=== PATIENT | female | born 1990 | race Caucasian/White ===

== ENCOUNTER 2016-04-19 13:34 | Emergency (ER) | payer OTHER ==
[2016-04-19 14:55] LABS: Urine Bilirubin Negative (Negative); Urine Glucose Negative (Negative); Urine Nitrite Negative (Negative)
--- NOTE | 2016-04-19 17:12 | RAD ---
INDICATION: 7 months . Evaluate for obstruction. COMPARISON: CT abdomen pelvis November 19, 2013 TECHNIQUE: Longitudinal and transverse scans of the kidneys and bladder were obtained. FINDINGS: Kidneys: The kidneys are normal in size and echogenicity. No renal masses, calculi, or hydronephrosis is seen. The right kidney measures 9.2 x 3.2 x 4.9 cm and the left kidney 9.7 x 3.6 x 4.4 cm. Bladder: The bladder is partially distended. There are no intrinsic or extrinsic masses. The prevoid volume is 353 ml and the postvoid volume is 4 ml. Ureteral jets are not documented but this is likely related to technical factors. The patient was imaged in the decubitus position. Other: None IMPRESSION: NO SCINTIGRAPHIC ADVISED. NO EVIDENCE OF HYDRONEPHROSIS.
--- NOTE | 2016-04-19 18:47 | ED ---
Arsenio Gaines Billy, scribed for Abigail Thomas MD on 04/19/16 at 1427 . GI/ HPI - HPI Summary HPI Summary: Patient is a 25 year-old female coming to [facility] presenting with urinary retention and lower back pain since yesterday. Pain severity 4/10. Patient has difficulty starting a stream of urine. She is 7 months (/A0). She denies any similar episodes in the past. She has increased her fluid intake with no improvement. She sees [facility] DOCTOR'S ASSISTANT in [place]. - History of Current Complaint Chief Complaint: EDUrogenitalProblems Time Seen by Provider: 04/19/16 13:58 Stated Complaint: UNABLE URINATE/LOWER BACK PAIN/ 7 MO Hx Obtained From: Patient Onset/Duration: Started Hours Ago - since yesterday Timing: Constant Severity: Moderate Current Severity: Moderate Pain Intensity: 4 - lower back Associated Signs and Symptoms: Positive: Other: - urinary retention Aggravating Factor(s): Nothing Alleviating Factor(s): Nothing - Allergy/Home Medications Allergies/Adverse Reactions: Allergies Allergy/AdvReac Type Severity Reaction Status Date / Time Cefaclor [From Ceclor] Allergy Intermediate Shortness Verified 10/25/15 00:05 of Breath Erythromycin Allergy Intermediate Rash And Verified 10/25/15 00:05 Itching Latex Allergy Intermediate Rash And Verified 10/25/15 00:05 Itching Penicillins AdvReac Intermediate GI Upset Verified 10/25/15 00:05 Sulfa Drugs AdvReac Intermediate GI Upset Verified 10/25/15 00:05 Amoxicillin AdvReac Mild GI Upset Verified 10/25/15 00:05 PMH/Surg Hx/FS Hx/Imm Hx Endocrine/Hematology History: Denies: Hx Diabetes, Hx Thyroid Disease, Hx Anemia, Hx Unexplained Bleeding Cardiovascular History: Reports: 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6, Hx Valvular Heart Disease - see above Denies: Hx Aneurysm, Hx Angina, Hx Angioplasty, Hx Auto Implanted Cardiovert Defib, Hx Cardiac Arrest, Hx Cardiomegaly, Hx Congestive Heart Failure, Hx Coronary Artery Disease, Hx Deep Vein Thrombosis, Hx Embolism, Hx Hypercholesterolemia, Hx Hypotension, Hx Hypertension, Hx Pacemaker/ICD, Hx Peripheral Vascular Disease, Hx Rheumatic Fever, Hx Syncope, Other Cardiovascular Problems/Disorders Respiratory History: Reports: Hx Asthma Denies: Hx Chronic Obstructive Pulmonary Disease (COPD) GI History: Denies: Hx Ulcer History: Reports: Hx Kidney Stones, Other Problems/Disorders - current uti Sensory History: Denies: Hx Contacts or Glasses Opthamlomology History: Denies: Hx Contacts or Glasses Psychiatric History: Reports: Hx Depression - per moms report. - Surgical History Surgery Procedure, Year, and Place: age 6 cardiac surgery HOLE IN HEART, choley 2013 Infectious Disease History: No Infectious Disease History: Denies: Hx Clostridium Difficile, Hx Hepatitis, Hx Human Immunodeficiency Virus (HIV), Hx of Known/Suspected MRSA, Hx Shingles, Hx Tuberculosis, Hx Known/ Suspected VRE, Hx Known/Suspected VRSA, History Other Infectious Disease, Traveled Outside the [place] in Last 30 Days - Family History Known Family History: Positive: Cardiac Disease - Social History Lives: Alone Alcohol Use: Occasionally Substance Use Type: Reports: None Hx Tobacco Use: Yes Smoking Status (MU): Former Smoker Type: Cigarettes Amount Used/How Often: 2 cig/day Length of Time of Smoking/Using Tobacco: 1+ year Review of Systems Negative: Fever Genitourinary: Other - 7mo Positive: other - retention Positive: Other - lower back pain All Other Systems Reviewed And Are Negative: Yes Physical Exam Triage Information Reviewed: Yes Vital Signs On Initial Exam: Initial Vitals Temp Pulse Resp BP Pulse Ox 97.4 F 67 20 108/58 98 04/19/16 13:42 04/19/16 13:42 04/19/16 13:42 04/19/16 13:42 04/19/16 13:42 Vital Signs Reviewed: Yes Appearance: Positive: Well-Appearing, No Pain Distress Skin: Positive: Warm, Skin Color Reflects Adequate Perfusion, Dry Head/Face: Positive: Normal Head/Face Inspection Eyes: Positive: EOMI, JOCY ENT: Positive: Normal ENT inspection Neck: Positive: Supple, Nontender Respiratory/Lung Sounds: Positive: Clear to Auscultation, Breath Sounds Present Cardiovascular: Positive: RRR Abdomen Description: Positive: Nontender, Soft, Other: - Gravid uterus. Negative: CVA Tenderness (R), CVA Tenderness (L), Distended, Guarding Musculoskeletal: Positive: Strength/ROM Intact Neurological: Positive: Sensory/Motor Intact, Alert, Oriented to Person Place, Time, CN Intact II-III Psychiatric: Positive: Affect/Mood Appropriate AVPU Assessment: Alert - Alessandra Coma Scale Coma Scale Total: 15 Diagnostics - Vital Signs Vital Signs Temp Pulse Resp BP Pulse Ox 04/19/16 13:42 97.4 F 67 20 108/58 98 - Laboratory Lab Results: Lab Results 04/19/16 Range/Units 14:40 Urine Color Yellow Urine Appearance Cloudy Urine pH 6.0 (5-9) Ur Specific [place] 1.019 (1.010-1.030) Urine Protein Negative (Negative) Urine Ketones Negative (Negative) Urine Blood Negative (Negative) Urine Nitrate Negative (Negative) Urine Bilirubin Negative (Negative) Urine Urobilinogen Negative (Negative) Ur Leukocyte Esterase Negative (Negative) Urine Glucose Negative (Negative) Urine Ascorbic Acid * H (Negative) Lab Statement: Any lab studies that have been ordered have been reviewed, and results considered in the medical decision making process. - Ultrasound No standard instances Ultrasound Interpretation Completed By: Radiologist - Abd/bladder ultrasound: NO SCINTIGRAPHIC ADVISED. NO EVIDENCE OF HYDRONEPHROSIS. Re-Evaluation - Re-Evaluation First Eval Re-Evaluation Time: 14:59 GIGU Course/Dx - Course Course Of Treatment: pt noticing she has to push hard to urinate and that does not feel normal to her she is 7 months urine neg here vss and u/s shows no residual after urination and no hydronephrosis. pt is very well appearing will f/u with her coal crusher operator and return for any new or worsened symptoms - Diagnoses Provider Diagnoses: Dysuria Discharge - Discharge Plan Condition: Stable Disposition: HOME Patient Education Materials: Dysuria (ED) Referrals: James Decker MD [Primary Care Provider] - The documentation as recorded by the Arsenio stevenson Billy accurately reflects the service I personally performed and the decisions made by me, Abigail Thomas MD.
[2016-04-19 19:13] VITALS: BP 134/78
== END 2016-04-19 19:12 | disposition home or self-care (01) ==
LOC: ED 13:34
DX: O26.893 Other specified pregnancy related conditions, third trimester (principal); M54.5 Low back pain; R30.0 Dysuria; R33.9 Retention of urine, unspecified; Z88.0 Allergy status to penicillin; Z87.891 Personal history of nicotine dependence; Z3A.26 26 weeks gestation of pregnancy
CPT/HCPCS: 76770; 81003; 99283

== ENCOUNTER 2017-08-05 13:15 | Emergency (ER) | payer OTHER ==
[2017-08-05 14:04] LABS: ABS Basophils 0.1 10^3/ul (0-0.2); ABS Eosinophils 0.3 10^3/ul (0-0.6); ABS Lymphocytes 1.2 10^3/ul (1.0-4.8); ABS Monocytes 0.9 10^3/ul (0-0.8); ABS Neutrophils 6.6 10^3/ul (1.5-7.7); ABS Nucleated RBC 0 10^3/ul; Eosinophil % 2.9 % (0-6); Hematocrit 29 % (35-47); Hemoglobin 9.5 g/dl (12.0-16.0); Lymphocyte % 13.6 % (25-47); Mean Corpuscular HGB Conc 33 g/dl (31-36); Mean Corpuscular Hemoglobin 29 pg (27-31); Mean Corpuscular Volume 87 fL (80-97); Mean Platelet Volume 9.8 um3 (7.4-10.4); Nucleated Red Blood Cells % 0; Platelet Count 199 10^3/ul (150-450); Red Blood Count 3.27 10^6/ul (4.0-5.4); Red Cell Distribution Width 15 % (10.5-15)
[2017-08-05 14:18] LABS: INR 0.98 (0.77-1.02)
[2017-08-05 14:25] LABS: EGFR Non-African American 97.9 (>60)
--- NOTE | 2017-08-05 15:20 | ED ---
Skin Complaint - HPI Summary HPI Summary: Pt here w/ bloody leakage from wound 5 days s/p - clear, bloody d/c. Sudden release then stopped. Denies fever, chills, N/V/D, pain other than soreness from . H&h are low from - pt is taking vitamins and follows w/ Dr. Levi in [place]. Eating and drinking w/o pain. Voided her bladder and moved her bowels today w/o pain or difficulty. No know h/o MRSA. - History of Current Complaint Chief Complaint: EDOBProblems Time Seen by Provider: 08/05/17 13:35 Stated Complaint: OB PROBLEM Hx Obtained From: Patient Hx Last Menstrual Period: 09/02/14 Pain Intensity: 0 - Allergy/Home Medications Allergies/Adverse Reactions: Allergies Allergy/AdvReac Type Severity Reaction Status Date / Time MS Cefaclor [From Ceclor] Allergy Intermediate Shortness Verified 10/25/15 00:05 of Breath MS Erythromycin Allergy Intermediate Rash And Verified 10/25/15 00:05 [Erythromycin] Itching MS Latex [Latex] Allergy Intermediate Rash And Verified 10/25/15 00:05 Itching MS Penicillins [Penicillins] AdvReac Intermediate GI Upset Verified 10/25/15 00: 05 MS Sulfa Drugs [Sulfa Drugs] AdvReac Intermediate GI Upset Verified 10/25/15 00: 05 MS Amoxicillin [Amoxicillin] AdvReac Mild GI Upset Verified 10/25/15 00:05 Home Medications: Home Medications oxyCODONE/Acetam5/325MG PREPAK [Percocet 5/325 TAB*] 1 tab PO Q4H PRN 08/05/17 [ History Confirmed 08/05/17] PMH/Surg Hx/FS Hx/Imm Hx Endocrine/Hematology History: Denies: Hx Diabetes, Hx Thyroid Disease, Hx Anemia, Hx Unexplained Bleeding Cardiovascular History: Reports: 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6, Hx Valvular Heart Disease - see above Denies: Hx Aneurysm, Hx Angina, Hx Angioplasty, Hx Auto Implanted Cardiovert Defib, Hx Cardiac Arrest, Hx Cardiomegaly, Hx Congestive Heart Failure, Hx Coronary Artery Disease, Hx Deep Vein Thrombosis, Hx Embolism, Hx Hypercholesterolemia, Hx Hypotension, Hx Hypertension, Hx Pacemaker/ICD, Hx Peripheral Vascular Disease, Hx Rheumatic Fever, Hx Syncope, Other Cardiovascular Problems/Disorders Respiratory History: Reports: Hx Asthma Denies: Hx Chronic Obstructive Pulmonary Disease (COPD) GI History: Denies: Hx Ulcer History: Reports: Hx Kidney Stones, Other Problems/Disorders - current uti Sensory History: Denies: Hx Contacts or Glasses Opthamlomology History: Denies: Hx Contacts or Glasses Psychiatric History: Reports: Hx Depression - per moms report. - Surgical History Surgery Procedure, Year, and Place: age 6 [facility] Infectious Disease History: No Infectious Disease History: Denies: Hx Clostridium Difficile, Hx Hepatitis, Hx Human Immunodeficiency Virus (HIV), Hx of Known/Suspected MRSA, Hx Shingles, Hx Tuberculosis, Hx Known/ Suspected VRE, Hx Known/Suspected VRSA, History Other Infectious Disease, Traveled Outside the US in Last 30 Days - Family History Known Family History: Positive: Cardiac Disease - Social History Alcohol Use: None Substance Use Type: Reports: None Hx Tobacco Use: Yes Smoking Status (MU): Former Smoker Type: Cigarettes Amount Used/How Often: 2 cig/day Length of Time of Smoking/Using Tobacco: 1+ year Physical Exam Vital Signs On Initial Exam: Initial Vitals Temp Pulse Resp BP Pulse Ox 97.8 F 67 16 122/45 97 08/05/17 13:18 08/05/17 13:18 08/05/17 13:18 08/05/17 13:18 08/05/17 13:18 Diagnostics - Vital Signs Vital Signs Temp Pulse Resp BP Pulse Ox 08/05/17 13:55 63 108/65 96 08/05/17 13:18 97.8 F 67 16 122/45 97 - Laboratory Lab Results: Lab Results 08/05/17 08/05/17 08/05/17 Range/Units 13:48 13:48 13:48 WBC 9.0 (3.5-10.8) 10^3/ul RBC 3.27 L (4.0-5.4) 10^6/ul Hgb 9.5 L (12.0-16.0) g/dl Hct 29 L (35-47) % MCV 87 (80-97) fL MCH 29 (27-31) pg MCHC 33 (31-36) g/dl RDW 15 (10.5-15) % Plt Count 199 (150-450) 10^3/ul MPV 9.8 (7.4-10.4) um3 Neut % (Auto) 72.6 (38-83) % Lymph % (Auto) 13.6 L (25-47) % [place] % (Auto) 10.0 H (0-7) % Eos % (Auto) 2.9 (0-6) % Baso % (Auto) 0.9 (0-2) % Absolute Neuts (auto) 6.6 (1.5-7.7) 10^3/ul Absolute Lymphs (auto) 1.2 (1.0-4.8) 10^3/ul Absolute Monos (auto) 0.9 H (0-0.8) 10^3/ul Absolute Eos (auto) 0.3 (0-0.6) 10^3/ul Absolute Basos (auto) 0.1 (0-0.2) 10^3/ul Absolute Nucleated RBC 0 10^3/ul Nucleated RBC % 0 INR (Anticoag Therapy) 0.98 (0.77-1.02) APTT 31.8 (26.0-36.3) seconds Sodium 140 (139-145) mmol/L Potassium 4.1 (3.5-5.0) mmol/L Chloride 106 (101-111) mmol/L Carbon Dioxide 24 (22-32) mmol/L Anion Gap 10 (2-11) mmol/L BUN 8 (6-24) mg/dL Creatinine 0.73 (0.51-0.95) mg/dL Est GFR ( Amer) 126.0 (>60) Est GFR (Non-Af Amer) 97.9 (>60) BUN/Creatinine Ratio 11.0 (8-20) Glucose 95 (70-100) mg/dL Calcium 8.3 L (8.6-10.3) mg/dL Total Bilirubin 0.40 (0.2-1.0) mg/dL AST 24 (13-39) U/L ALT 46 (7-52) U/L Alkaline Phosphatase 193 H (34-104) U/L Total Protein 6.4 (6.4-8.9) g/dL Albumin 3.0 L (3.2-5.2) g/dL Globulin 3.4 (2-4) g/dL Albumin/Globulin Ratio 0.9 L (1-3) Blood Type Antibody Screen 08/05/17 Range/Units 13:48 WBC (3.5-10.8) 10^3/ul RBC (4.0-5.4) 10^6/ul Hgb (12.0-16.0) g/dl Hct (35-47) % MCV (80-97) fL MCH (27-31) pg MCHC (31-36) g/dl RDW (10.5-15) % Plt Count (150-450) 10^3/ul MPV (7.4-10.4) um3 Neut % (Auto) (38-83) % Lymph % (Auto) (25-47) % [place] % (Auto) (0-7) % Eos % (Auto) (0-6) % Baso % (Auto) (0-2) % Absolute Neuts (auto) (1.5-7.7) 10^3/ul Absolute Lymphs (auto) (1.0-4.8) 10^3/ul Absolute Monos (auto) (0-0.8) 10^3/ul Absolute Eos (auto) (0-0.6) 10^3/ul Absolute Basos (auto) (0-0.2) 10^3/ul Absolute Nucleated RBC 10^3/ul Nucleated RBC % INR (Anticoag Therapy) (0.77-1.02) APTT (26.0-36.3) seconds Sodium (139-145) mmol/L Potassium (3.5-5.0) mmol/L Chloride (101-111) mmol/L Carbon Dioxide (22-32) mmol/L Anion Gap (2-11) mmol/L BUN (6-24) mg/dL Creatinine (0.51-0.95) mg/dL Est GFR ( Amer) (>60) Est GFR (Non-Af Amer) (>60) BUN/Creatinine Ratio (8-20) Glucose (70-100) mg/dL Calcium (8.6-10.3) mg/dL Total Bilirubin (0.2-1.0) mg/dL AST (13-39) U/L ALT (7-52) U/L Alkaline Phosphatase (34-104) U/L Total Protein (6.4-8.9) g/dL Albumin (3.2-5.2) g/dL Globulin (2-4) g/dL Albumin/Globulin Ratio (1-3) Blood Type O Positive Antibody Screen Negative Result Diagrams: 08/05/17 13:48 08/05/17 13:48 Lab Statement: Any lab studies that have been ordered have been reviewed, and results considered in the medical decision making process. Discharge - Sign-Out/Discharge Documenting (check all that apply): Discharge/Admit/Transfer - Discharge Plan Condition: Stable Disposition: HOME Patient Education Materials: Seroma (DC) Referrals: Yesi Levi MD [Medical Doctor] - Additional Instructions: Keep area clean and dry - lie back throughout the day with abdominal skin pulled away from pubic skin to allow for drying, healing of wound. You may also wear a pad/gauze across your wound site when you are up and about to help absorb any further drainage from this site. Do not lift per discharge instructions. Follow-up with Dr Levi as scheduled. Continue vitamins and nitrition for anemia. *If you develop fever, chills, vomiting, diarrhea, pain in area of concern, purulent drainage, continuous bloody drainage, weakness, dizziness, fatigue, cramping, return to ED - Billing Disposition and Condition Condition: STABLE Disposition: HOME
--- NOTE | 2017-08-05 15:30 | UC ---
- Progress Note Progress Note: I supervised the care of the physician orthopaedic physician assistant and I performed a history of physical on this patient. History: Post- with leaking of bloody drainage from the left hand aspect of her wound. No fever or purulence. Physical exam: Pannus overlies the low transverse surgical scar. There is no active leaking of fluid. She is warm and sweaty throughout the region. The Steri-Strips are not adhering. There is blood soaked Steri-Strips on the left one third of the wound. Plan: The wound was examined at the bedside with ultrasound by me. There is a 1.8 x 1.4 cm area of non-pulsatile free fluid that appears to be likely seroma. Given that is not draining now I offered the patient option to have it aspirated. She will hold off. She is told to expect that it likely will drain again from this point she will keep a towel in the area of the pannus to keep the wound dry. And, she will follow-up with her DOOR REPAIRMAN. Course/Dx - Diagnoses Provider Diagnoses: Postoperative seroma Discharge - Sign-Out/Discharge Documenting (check all that apply): Discharge/Admit/Transfer - Discharge Plan Condition: Stable Disposition: HOME Patient Education Materials: Seroma (DC) Referrals: Yesi Levi MD [Medical Doctor] - Additional Instructions: Keep area clean and dry - lie back throughout the day with abdominal skin pulled away from pubic skin to allow for drying, healing of wound. You may also wear a pad/gauze across your wound site when you are up and about to help absorb any further drainage from this site. Do not lift per discharge instructions. Follow-up with Dr Levi as scheduled. Continue vitamins and nitrition for anemia. *If you develop fever, chills, vomiting, diarrhea, pain in area of concern, purulent drainage, continuous bloody drainage, weakness, dizziness, fatigue, cramping, return to ED - Billing Disposition and Condition Condition: STABLE Disposition: HOME
[2017-08-05 15:50] VITALS: BP 109/55
== END 2017-08-05 15:50 | disposition home or self-care (01) ==
LOC: ED 13:15
DX: O90.2 Hematoma of obstetric wound (principal); Z87.891 Personal history of nicotine dependence; Z88.0 Allergy status to penicillin; Z88.2 Allergy status to sulfonamides; Z88.3 Allergy status to other anti-infective agents
CPT/HCPCS: 36415; 80053; 85025; 85610; 85730; 86850; 86900; 86901; 99282

== ENCOUNTER 2018-08-31 10:50 | Emergency (ER) | payer OTHER ==
[2018-08-31 12:15] LABS: Rapid Strep Molecular Negative (Negative)
[2018-08-31 13:07] VITALS: BP 104/56
--- NOTE | 2018-08-31 15:54 | ED ---
Throat Pain/Nasal Congestion - HPI Summary HPI Summary: Patient is a 27-year-old female who presents to emergency department for a sore throat 3-4 days. Patient notes she had symptoms of mild cough and headache. Denies fever, abdominal pain, vomiting, diarrhea, urinary symptoms. No significant past medical history. Symptoms are mild in severity. Patient states take Tylenol and Motrin with no improvement. No current modifying factors. - History of Current Complaint Chief Complaint: EDThroatPain Time Seen by Provider: 08/31/18 12:37 Hx Obtained From: Patient - Allergies/Home Medications Allergies/Adverse Reactions: Allergies Allergy/AdvReac Type Severity Reaction Status Date / Time c[facility] [[facility] Allergy Intermediate Rash And Verified 08/31/18 15:12 Itching erythromycin base Allergy Intermediate Rash And Verified 08/31/18 15:12 Itching latex Allergy Intermediate Rash Verified 08/31/18 15:12 amoxicillin AdvReac GI Upset Verified 08/31/18 15:12 Penicillins AdvReac GI Upset Verified 08/31/18 15:12 Sulfa (Sulfonamide AdvReac GI Upset Verified 08/31/18 15:12 Antibiotics) PMH/Surg Hx/FS Hx/Imm Hx Previously Healthy: Yes Endocrine/Hematology History: Denies: Hx Anticoagulant Therapy, Hx Blood Disorders, Hx Diabetes, Hx Thyroid Disease, Hx Anemia, Hx Unexplained Bleeding Cardiovascular History: Reports: 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6, Hx Valvular Heart Disease - see above Denies: Hx Aneurysm, Hx Angina, Hx Angioplasty, Hx Auto Implanted Cardiovert Defib, Hx Cardiac Arrest, Hx Cardiomegaly, Hx Congestive Heart Failure, Hx Coronary Artery Disease, Hx Deep Vein Thrombosis, Hx Embolism, Hx Hypercholesterolemia, Hx Hypotension, Hx Hypertension, Hx Pacemaker/ICD, Hx Peripheral Vascular Disease, Hx Rheumatic Fever, Hx Syncope, Other Cardiovascular Problems/Disorders Respiratory History: Reports: Hx Asthma Denies: Hx Chronic Obstructive Pulmonary Disease (COPD) GI History: Denies: Hx Ulcer History: Reports: Hx Kidney Stones, Other Problems/Disorders - current uti ; Sensory History: Denies: Hx Contacts or Glasses Opthamlomology History: Denies: Hx Contacts or Glasses Psychiatric History: Reports: Hx Depression - per moms report. - Surgical History Surgery Procedure, Year, and Place: age 6 cardiac surgery HOLE IN HEART, choley 2014 Infectious Disease History: No Infectious Disease History: Denies: Hx Clostridium Difficile, Hx Hepatitis, Hx Human Immunodeficiency Virus (HIV), Hx of Known/Suspected MRSA, Hx Shingles, Hx Tuberculosis, Hx Known/ Suspected VRE, Hx Known/Suspected VRSA, History Other Infectious Disease, Traveled Outside the [place] in Last 30 Days - Family History Known Family History: Positive: Cardiac Disease - Social History Alcohol Use: None Hx Substance Use: No Substance Use Type: Reports: None Hx Tobacco Use: Yes Smoking Status (MU): Former Smoker Type: Cigarettes Amount Used/How Often: 2 cig/day Length of Time of Smoking/Using Tobacco: 1+ year Review of Systems Positive: Fever, Chills Eyes: Negative Positive: Sore Throat Cardiovascular: Negative Respiratory: Negative Gastrointestinal: Negative Negative: Abdominal Pain, Vomiting, Diarrhea Genitourinary: Negative Negative: dysuria Skin: Negative Positive: Headache All Other Systems Reviewed And Are Negative: Yes Physical Exam Triage Information Reviewed: Yes Vital Signs On Initial Exam: Initial Vitals Temp Pulse Resp BP Pulse Ox 99.3 F 66 20 123/87 95 08/31/18 11:05 08/31/18 11:05 08/31/18 11:05 08/31/18 11:05 08/31/18 11:05 Vital Signs Reviewed: Yes Appearance: Positive: Well-Appearing - Pt. lying in bed in NAD. Appears to feel unwell but nontoxic. Mother present. Skin: Positive: Warm, Dry Head/Face: Positive: Normal Head/Face Inspection Eyes: Positive: Normal, EOMI, JOCY ENT: Positive: TMs normal, Other - Mild-moderate bilateral tonsilar edema with exudates. Uvula is midline without deviation. No trismus or muffled voice. Neck: Positive: Supple, Enlarged Nodes @ - left anterior cervical. Respiratory/Lung Sounds: Positive: Clear to Auscultation, Breath Sounds Present. Negative: Rales, Rhonchi, Wheezes Cardiovascular: Positive: Normal, RRR Musculoskeletal: Positive: Normal, Strength/ROM Intact Neurological: Positive: Normal, CN Intact II-III Psychiatric: Positive: Affect/Mood Appropriate Diagnostics - Vital Signs Vital Signs Temp Pulse Resp BP Pulse Ox 08/31/18 13:06 99.4 F 61 18 104/56 100 08/31/18 12:34 100 F 62 18 104/59 100 08/31/18 11:05 99.3 F 66 20 123/87 95 - Laboratory Lab Results: Lab Results 08/31/18 Range/Units 11:57 Group A Strep Rapid Negative (Negative) Lab Statement: Any lab studies that have been ordered have been reviewed, and results considered in the medical decision making process. EENT Course/Dx - Course Course Of Treatment: Patient presenting with exudative tonsillitis. Low-grade fever. No signs of abscess on exam. Rapid strep is negative. Treat with clindamycin given fever, exudates and lymphadenopathy, allergies to amoxicillin. Tylenol or Motrin for pain and fever as directed. Follow-up with PCP 2-3 days if symptoms persist return to the ER symptoms change or worsen. Patient understands and agrees with plan. - Differential Diagnoses Differential Diagnoses: Laryngitis, Pharyngitis - Diagnoses Provider Diagnoses: Exudative tonsillitis Discharge - Sign-Out/Discharge Documenting (check all that apply): Patient Departure Patient Received Moderate/Deep Sedation with Procedure: No - Discharge Plan Condition: Good Disposition: HOME Patient Education Materials: Tonsillitis (ED) Referrals: James Decker MD [Primary Care Provider] - Additional Instructions: Follow up with PCP Take medication as directed Continue ibuprofen as directed Increase fluids and rest Return to ER if symptoms change or worsen - Billing Disposition and Condition Condition: GOOD Disposition: Home
== END 2018-08-31 13:06 | disposition home or self-care (01) ==
LOC: ED 10:50
DX: J03.90 Acute tonsillitis, unspecified (principal); Z87.891 Personal history of nicotine dependence
CPT/HCPCS: 87651; 99282

== ENCOUNTER 2018-08-31 14:42 | Emergency (ER) | payer OTHER ==
[2018-08-31 15:11] VITALS: BP 105/56
--- NOTE | 2018-08-31 15:39 | UC ---
Respiratory Complaint HPI - HPI Summary HPI Summary: Patient is a 27 y/o female with productive cough, nasal congestion and rhinorrhea, sore throat, and intermittent neck pain with cough x 3 days. She was seen at the ED earlier today, rapid strep was negative but patient was not given prescriptions for her symptoms. She returns here for treatment stating her biggest complaint is her cough and neck pain. Denies tobacco use. - History of Current Complaint Chief Complaint: UCGeneralIllness Stated Complaint: NECK, HEAD PAIN Hx Obtained From: Patient Hx Last Menstrual Period: end of july Onset/Duration: Sudden Onset Timing: Constant Severity Initially: Mild Severity Currently: Moderate Pain Intensity: 8 Pain Scale Used: 0-10 Numeric Character: Cough: Productive, Sputum Description: - Yellow, no blood Aggravating Factors: Other - Cough Alleviating Factors: Nothing Associated Signs And Symptoms: Positive: Nasal Congestion. Negative: Dyspnea, Fever, Chills, Pleuritic Chest Pain, Wheezing, Sinus Discomfort - Allergies/Home Medications Allergies/Adverse Reactions: Allergies Allergy/AdvReac Type Severity Reaction Status Date / Time cefaclor [From Ceclor] Allergy Intermediate Rash And Verified 08/31/18 15:12 Itching erythromycin base Allergy Intermediate Rash And Verified 08/31/18 15:12 Itching latex Allergy Intermediate Rash Verified 08/31/18 15:12 amoxicillin AdvReac GI Upset Verified 08/31/18 15:12 Penicillins AdvReac GI Upset Verified 08/31/18 15:12 Sulfa (Sulfonamide AdvReac GI Upset Verified 08/31/18 15:12 Antibiotics) Home Medications: Home Medications Ibuprofen TAB* [Advil TAB*] 800 mg PO Q6H PRN 08/31/18 [History Confirmed ] PMH/Surg Hx/FS Hx/Imm Hx Previously Healthy: Yes Other History Of: Negative For: Anticoagulant Therapy - Surgical History Surgical History: Yes Surgery Procedure, Year, and Place: age 6 cardiac surgery HOLE IN HEART, choley 2013. - Family History Known Family History: Positive: Cardiac Disease - Social History Alcohol Use: Occasionally Substance Use Type: Marijuana Smoking Status (MU): Former Smoker Type: Cigarettes Amount Used/How Often: 2 cig/day Length of Time of Smoking/Using Tobacco: 1+ year Household Exposure Type: Cigarettes - Immunization History Most Recent Influenza Vaccination: will recieve after delivery pt thinks Most Recent Tetanus Shot: 10/2012 Most Recent Pneumonia Vaccination: none Review of Systems All Other Systems Reviewed And Are Negative: Yes Constitutional: Negative: Fever, Chills ENT: Positive: Sore Throat, Nasal Discharge, Sinus Congestion Respiratory: Positive: Cough. Negative: Shortness Of Breath Cardiovascular: Negative: Chest Pain Gastrointestinal: Negative: Abdominal Pain, Vomiting, Nausea Neurological: Positive: Headache - with neck pain Physical Exam Triage Information Reviewed: Yes Appearance: Well-Appearing, No Pain Distress Vital Signs: Initial Vital Signs Temp 99.2 F 08/31/18 15:05 Pulse 65 08/31/18 15:05 Resp 14 08/31/18 15:05 BP 105/56 08/31/18 15:05 Pulse Ox 100 08/31/18 15:05 Vital Signs Reviewed: Yes Eye Exam: Normal Eyes: Positive: Conjunctiva Clear ENT: Positive: Pharyngeal erythema, Nasal congestion, TMs normal, Tonsillar swelling, Tonsillar exudate, Uvula midline. Negative: Nasal drainage, Sinus tenderness Neck: Positive: Supple, Nontender. Negative: Nuchal Rigidity Respiratory: Positive: Lungs clear, Normal breath sounds. Negative: Crackles, Rhonchi, Wheezing Cardiovascular: Positive: RRR, No Murmur Abdomen Description: Negative: Distended Musculoskeletal Exam: Normal Musculoskeletal: Positive: Strength Intact, ROM Intact Neurological Exam: Normal Neurological: Positive: Alert, Muscle Tone Normal Psychological Exam: Normal Skin Exam: Normal Respiratory Course/Dx - Course Course Of Treatment: 27 y/o female with productive cough and tonsillar exudate, consistent with allergic vs. viral etiology. Patient discharged with prescriptions for prednisone and decongestant. To f/u with PCP. - Differential Dx/Diagnosis Differential Diagnosis/HQI/PQRI: Bronchitis, Lower Resp Infection, Other - upper respiratory infection Provider Diagnosis: Tonsillitis, Pharyngitis Discharge - Sign-Out/Discharge Documenting (check all that apply): Patient Departure All imaging exams completed and their final reports reviewed: No Studies - Discharge Plan Condition: Improved Disposition: HOME Prescriptions: Dexamethasone TAB* [Decadron TAB*] 8 mg PO DAILY #8 tab Guaifenesin/Pseudoephedrne HCl [Mucinex D ER 1,200-120 mg Tab] 1 each PO BID PRN #14 tab.er.12h PRN Reason: Congestion Naproxen [Naproxen 500 mg tab] 500 mg PO BID PRN #14 tablet PRN Reason: Pain Patient Education Materials: Pharyngitis (ED) Referrals: James Decker MD [Primary Care Provider] - Additional Instructions: Drink plenty of fluids. Vitamin C may help. Humidifier while sleeping. Return if worse, fevers, new symptoms or other concerns. - Billing Disposition and Condition Condition: IMPROVED Disposition: Home - Attestation Statements Document Initiated by Tetoibgina: Yes Documenting Scribe: AYANA Stern Provider For Whom Bennie is Documenting (Include Credential): Dr. Porter Scribe Attestation: Kj Gaines PA-S, scribed for Dr. Potrer on 08/31/18 at 1658. Scribe Documentation Reviewed: Yes Provider Attestation: The documentation as recorded by the tetoibgina, AYANA Stern accurately reflects the service I personally performed and the decisions made by Dr. German andrea Status of Scribe Document: Viewed
== END 2018-08-31 15:43 | disposition home or self-care (01) ==
LOC: UCEAST 14:42
DX: J03.90 Acute tonsillitis, unspecified (principal); J02.9 Acute pharyngitis, unspecified; R05 Cough; Z88.0 Allergy status to penicillin; Z88.2 Allergy status to sulfonamides; Z91.040 Latex allergy status
CPT/HCPCS: 99212; G0463

== ENCOUNTER 2020-03-29 14:02 | Inpatient (IN) ==
[2020-03-29] MEDS ORDERED: Buffered Lidocaine 1% SYRIN 1 ml INTRADERM ONE (15:08)
[2020-03-29] MEDS ORDERED: Penicillin G Potassium IV 5,000,000 UNITS in NS 0.9% 100 ml BAG 100 ML IVPB ONE (15:08)
[2020-03-29] MEDS ORDERED: Lactated Ringers 1000 ml BAG 1,000 ML IV ONE ×2 (15:08→17:01)
[2020-03-29] MEDS ORDERED: Lactated Ringers 1000 ml BAG 1,000 ML IV SCH ×3 (16:00→23:45)
[2020-03-29 16:09] LABS: ABS Basophils 0.1 10^3/ul (0-0.2); ABS Eosinophils 0.1 10^3/ul (0-0.6); ABS Lymphocytes 1.2 10^3/ul (1.0-4.8); ABS Monocytes 0.7 10^3/ul (0-0.8); ABS Neutrophils 6.2 10^3/ul (1.5-7.7); Eosinophil % 1.6 %; Hematocrit 31 % (35-47); Hemoglobin 10.4 g/dL (12.0-16.0); Lymphocyte % 14.8 %; Mean Corpuscular HGB Conc 33 g/dL (31-36); Mean Corpuscular Hemoglobin 28 pg (27-31); Mean Corpuscular Volume 85 fL (80-97); Mean Platelet Volume 10.8 fL (7.4-10.4); Nucleated Red Blood Cells % 0.1; Platelet Count 162 10^3/uL (150-450); Red Blood Count 3.67 10^6 /uL (3.70-4.87); Red Cell Distribution Width 15 % (10-15); White Blood Count 8.4 10^3/uL (3.5-10.8)
[2020-03-29] MEDS ORDERED: OBEPIDURAL 250 ML EPIDURAL ONE (16:25)
[2020-03-29 16:34] LABS: Urine Benzodiazepine Screen None Detected (None Detect); Urine Cannabinoids Screen None Detected (None Detect); Urine Opiates Screen None Detected (None Detect)
[2020-03-29] MEDS ORDERED: EPHEDrine (Pressors) 50 MG/ML VIAL IV PUSH PRN ×2 (17:01)
[2020-03-29] MEDS ORDERED: Sodium Citrate/Citric Acid LIQ 15 ML UDC PO PRN (17:01)
[2020-03-29] MEDS ORDERED: Phenylephrine 40 mcg/mL 10mL (400mcg) SYRINGE IV PUSH PRN ×2 (17:01)
[2020-03-29] MEDS ORDERED: OBEPIDURAL 250 ML EPIDURAL SCH (18:00)
[2020-03-29] MEDS ORDERED: Oxytocin in LR 20 UNITS/1,000 ML BAG IVPB ONE (19:41)
[2020-03-29] MEDS ORDERED: Penicillin G Potassium IV 3,000,000 UNITS in NS 0.9% 100 ml BAG 100 ML IVPB SCH (20:00)
[2020-03-29] MEDS ORDERED: Dibucaine 1% OINT 28.35 GM TUBE PR PRN (23:15)
[2020-03-29] MEDS ORDERED: Witch Hazel PAD JAR TOPICAL PRN (23:15)
[2020-03-30 06:57] LABS: ABS Lymphocytes 1.1 10^3/ul (1.0-4.8); ABS Monocytes 1.1 10^3/ul (0-0.8); ABS Neutrophils 9.3 10^3/ul (1.5-7.7); Eosinophil % 0.3 %; Hematocrit 28 % (35-47); Hemoglobin 9.3 g/dL (12.0-16.0); Lymphocyte % 9.5 %; Mean Corpuscular HGB Conc 33 g/dL (31-36); Mean Corpuscular Hemoglobin 29 pg (27-31); Mean Corpuscular Volume 86 fL (80-97); Mean Platelet Volume 10.2 fL (7.4-10.4); Platelet Count 139 10^3/uL (150-450); Red Blood Count 3.24 10^6 /uL (3.70-4.87); Red Cell Distribution Width 15 % (10-15); White Blood Count 11.5 10^3/uL (3.5-10.8)
[2020-03-31 11:04] VITALS: BP 123/69
== END 2020-03-31 17:45 | disposition home or self-care (01) ==
LOC: MCHOBOUT 14:02 → MCHOB 15:14
PROVIDERS: ADMIT Obstetrics & Gynecology; ATTEND Obstetrics & Gynecology